=== PATIENT | female | born 1965 | race Caucasian/White ===

== ENCOUNTER 2017-01-06 10:39 | Emergency (ER) | payer MEDICARE, OTHER ==
[2017-01-06] MEDS ORDERED: SODIUM CHLORIDE 0.9% 1,000 ML IV ONE (11:27)
[2017-01-06] MEDS ORDERED: ASPIRIN 325 MG TAB PO STA (11:27)
--- NOTE | 2017-01-06 12:06 | ED ---
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 She states that intermittently throughout the day she will get what closely resembles a pickup resulting in a small amount of air being expelled from her mouth numerous times a day. She states that she will occasionally feel mildly short of breath with this and that after doing it for 2 weeks she also has mild chest discomfort. During interview she states that she has a markedly past medical history of anxiety. She also states is a family history of premature coronary artery disease. She is concerned that due to her smoking she may have developed "holes in my lungs" that could be causing this. There were no preceding symptoms or recent illness. - Related Data Home Medications Medication Instructions Recorded Confirmed Citalopram Hydrobromide 40 mg PO HS 09/06/14 01/06/17 [Citalopram HBr] Dextroamphetamine/Amphetamine 20 mg PO QAM 01/06/17 01/06/17 [Adderall Xr] Lurasidone HCl [Latuda] 20 mg PO HS 01/06/17 01/06/17 Multivitamins, Thera [Multivitamin 1 tab PO DAILY 01/06/17 01/06/17 (formulary)] Allergies Allergy/AdvReac Type Severity Reaction Status Date / Time No Known Allergies Allergy Verified 01/06/17 11:42 Review of Systems ROS Statement: Those systems with pertinent positive or pertinent negative responses have been documented in the HPI. ROS Other: All systems not noted in ROS Statement are negative. Constitutional: Denies: fever, chills Eyes: Denies: eye pain, eye discharge, vision change ENT: Denies: ear pain, throat pain Respiratory: Reports: dyspnea, other (respiratory tick with release of breath involuntarily). Denies: cough, wheezes, hemoptysis, stridor Cardiovascular: Reports: chest pain. Denies: palpitations Endocrine: Denies: fatigue, polydipsia, polyuria Gastrointestinal: Denies: abdominal pain, nausea, vomiting Genitourinary: Denies: urgency, dysuria Musculoskeletal: Denies: back pain, arthralgia, myalgia Skin: Denies: rash, lesions Neurological: Denies: headache, weakness Psychiatric: Denies: anxiety, depression Hematological/Lymphatic: Denies: easy bleeding, easy bruising Past Medical History Additional Past Medical History / Comment(s): migraines, back pains, ectopic , depression, anxiety History of Any Multi-Drug Resistant Organisms: None Reported Past Surgical History: No Surgical Hx Reported Additional Past Surgical History / Comment(s): Ectopic removal Past Psychological History: Anxiety, Bipolar, Depression Smoking Status: Current some day smoker Past Alcohol Use History: Occasional Past Drug Use History: None Reported General Exam Limitations: no limitations General appearance: alert, in no apparent distress Head exam: Present: atraumatic, normocephalic, normal inspection Eye exam: Present: normal appearance, PERRL, EOMI. Absent: scleral icterus, conjunctival injection, periorbital swelling ENT exam: Present: normal exam, mucous membranes moist Neck exam: Present: normal inspection. Absent: tenderness, meningismus, lymphadenopathy Respiratory exam: Present: normal lung sounds bilaterally. Absent: respiratory distress, wheezes, rales, rhonchi, stridor Cardiovascular Exam: Present: regular rate, normal rhythm, normal heart sounds. Absent: systolic murmur, diastolic murmur, rubs, gallop, clicks GI/Abdominal exam: Present: soft, normal bowel sounds. Absent: distended, tenderness, guarding, rebound, rigid Rectal exam: Present: deferred Extremities exam: Present: normal inspection, full ROM, normal capillary refill. Absent: tenderness, pedal edema, joint swelling, calf tenderness Back exam: Present: normal inspection Neurological exam: Present: alert, oriented X3, CN II-XII intact Psychiatric exam: Present: anxious. Absent: flat affect, manic, homicidal ideation, suicidal ideation Skin exam: Present: warm, dry, intact, normal color. Absent: rash Course Vital Signs 01/06/17 01/06/17 01/06/17 10:48 12:11 13:11 Temperature 98.1 F Pulse Rate 108 H 90 86 Respiratory 20 Rate Blood Pressure 125/74 121/74 137/73 O2 Sat by Pulse 99 Oximetry 01/06/17 13:21 Temperature 97.6 F Pulse Rate 82 Respiratory 17 Rate Blood Pressure 125/72 O2 Sat by Pulse 98 Oximetry Medical Decision Making - Medical Decision Making Labs revealed no significant abnormalities and the chest x-ray showed no acute process. The patient was reevaluated and stated that she was feeling fine right now although she continues to have the hiccup like episodes. She was informed of all results and through shared decision making it was determined that she would be discharged with instructions to follow up with her PCP but to return if her symptoms should worsen or persist. She acknowledged an understanding of this information and agreed with this plan of care. - Lab Data Result diagrams: 01/06/17 12:07 01/06/17 12:07 Lab Results 01/06/17 01/06/17 01/06/17 Range/Units 12:07 12:07 12:07 WBC 7.7 (3.8-10.6) k/uL RBC 5.08 (3.80-5.40) m/uL Hgb 14.2 (11.4-16.0) gm/dL Hct 43.2 (34.0-46.0) % MCV 85.0 (80.0-100.0) fL MCH 27.8 (25.0-35.0) pg MCHC 32.8 (31.0-37.0) g/dL RDW 13.0 (11.5-15.5) % Plt Count 346 (150-450) k/uL Neutrophils % 66 % Lymphocytes % 26 % Monocytes % 5 % Eosinophils % 2 % Basophils % 0 % Neutrophils # 5.1 (1.3-7.7) k/uL Lymphocytes # 2.0 (1.0-4.8) k/uL Monocytes # 0.4 (0-1.0) k/uL Eosinophils # 0.1 (0-0.7) k/uL Basophils # 0.0 (0-0.2) k/uL D-Dimer (<0.60) mg/L FEU Sodium 142 (137-145) mmol/L Potassium 4.8 (3.5-5.1) mmol/L Chloride 103 (98-107) mmol/L Carbon Dioxide 28 (22-30) mmol/L Anion Gap 11 mmol/L BUN 11 (7-17) mg/dL Creatinine 0.70 (0.52-1.04) mg/dL Est GFR (MDRD) Af Amer >60 (>60 ml/min/1.73 sqM) Est GFR (MDRD) Non-Af >60 (>60 ml/min/1.73 sqM) Glucose 77 (74-99) mg/dL Calcium 10.1 (8.4-10.2) mg/dL Troponin I (0.000-0.034) ng/mL NT-Pro-B Natriuret Pep 41 pg/mL 01/06/17 01/06/17 01/06/17 Range/Units 12:07 12:07 13:55 WBC (3.8-10.6) k/uL RBC (3.80-5.40) m/uL Hgb (11.4-16.0) gm/dL Hct (34.0-46.0) % MCV (80.0-100.0) fL MCH (25.0-35.0) pg MCHC (31.0-37.0) g/dL RDW (11.5-15.5) % Plt Count (150-450) k/uL Neutrophils % % Lymphocytes % % Monocytes % % Eosinophils % % Basophils % % Neutrophils # (1.3-7.7) k/uL Lymphocytes # (1.0-4.8) k/uL Monocytes # (0-1.0) k/uL Eosinophils # (0-0.7) k/uL Basophils # (0-0.2) k/uL D-Dimer 0.27 (<0.60) mg/L FEU Sodium (137-145) mmol/L Potassium (3.5-5.1) mmol/L Chloride (98-107) mmol/L Carbon Dioxide (22-30) mmol/L Anion Gap mmol/L BUN (7-17) mg/dL Creatinine (0.52-1.04) mg/dL Est GFR (MDRD) Af Amer (>60 ml/min/1.73 sqM) Est GFR (MDRD) Non-Af (>60 ml/min/1.73 sqM) Glucose (74-99) mg/dL Calcium (8.4-10.2) mg/dL Troponin I <0.012 <0.012 (0.000-0.034) ng/mL NT-Pro-B Natriuret Pep pg/mL 01/06/17 12:08 Number sinus rhythm with possible left atrial enlargement. Ventricular rate 96 , KS interval 128, QRS 92, QT/QTC 364/459. Disposition Clinical Impression: SOB (shortness of breath) Disposition: HOME SELF-CARE Condition: Stable Instructions: Dyspnea (ED), Hiccups (ED), Breathing Techniques (ED) Referrals: Mathieu Slade MD [Primary Care Provider] - 1-2 days Time of Disposition: 14:57
--- NOTE | 2017-01-06 12:24 | XR ---
EXAMINATION TYPE: XR chest 2V DATE OF EXAM: 01/06/2017 COMPARISON: Prior chest x-ray March 02, 2012 HISTORY: History of tobacco use presents with shortness of breath and chest pain. TECHNIQUE: Frontal and lateral views of the chest are obtained. FINDINGS: There is no focal air space opacity, pleural effusion, or pneumothorax seen. The cardiac silhouette size is within normal limits. The osseous structures are intact. IMPRESSION: No acute cardiopulmonary process.
[2017-01-06 12:38] LABS: Basophils % (A) 0 %; CH 27.8; CHCM 32.9; Eosinophils # (A) 0.1 k/uL (0-0.7); Eosinophils % (A) 2 %; HCT 43.2 % (34.0-46.0); HDW 2.35; HGB 14.2 gm/dL (11.4-16.0); Luc # (Auto) 0.13; Luc % (Auto) 2; Lymphocytes % (A) 26 %; MCH 27.8 pg (25.0-35.0); MCHC 32.8 g/dL (31.0-37.0); Mean Platelet Volume 6.4; Monocytes # (A) 0.4 k/uL (0-1.0); Monocytes % (A) 5 %; Neutrophils # (A) 5.1 k/uL (1.3-7.7); Neutrophils % (A) 66 %; RBC 5.08 m/uL (3.80-5.40); WBC 7.7 k/uL (3.8-10.6); WBC (Perox) 7.55
[2017-01-06 12:50] LABS: Anion Gap 11 mmol/L; Blood Urea Nitrogen 11 mg/dL (7-17); Calcium 10.1 mg/dL (8.4-10.2); Carbon Dioxide 28 mmol/L (22-30); Chloride 103 mmol/L (98-107); Glucose 77 mg/dL (74-99); Non-African American GFR(MDRD) >60 (>60 ml/min/1.73 sqM); Potassium 4.8 mmol/L (3.5-5.1); Sodium 142 mmol/L (137-145)
[2017-01-06 15:08] VITALS: BP 119/75; PULSE 93; RESP 16; TEMP 97.5
== END 2017-01-06 15:07 | disposition home or self-care (01) ==
LOC: EC 10:39
DX: R06.02 Shortness of breath (principal); R07.89 Other chest pain; F31.9 Bipolar disorder, unspecified; F41.9 Anxiety disorder, unspecified; F17.200 Nicotine dependence, unspecified, uncomplicated; Z79.899 Other long term (current) drug therapy
CPT/HCPCS: 36415; 71020; 80048; 83880; 84484; 85025; 85379; 93005; 96360; 99285

== ENCOUNTER 2017-05-22 23:05 | Emergency (ER) | payer MEDICARE, OTHER ==
[2017-05-22 23:13] VITALS: BP 119/75; PULSE 111; RESP 18; TEMP 98.2
[2017-05-23] MEDS ORDERED: LORazepam 1 MG TAB PO STA (00:39)
[2017-05-23] MEDS ORDERED: KETOROLAC 30 MG/ML 1 ML VIAL IVP STA (00:39)
[2017-05-23 00:43] LABS: Basophils % (A) 0 %; CH 29.3; CHCM 33.6; Eosinophils # (A) 0.3 k/uL (0-0.7); Eosinophils % (A) 3 %; HCT 46.6 % (34.0-46.0); HDW 2.36; HGB 14.5 gm/dL (11.4-16.0); Luc # (Auto) 0.12; Luc % (Auto) 1; Lymphocytes # (A) 2.5 k/uL (1.0-4.8); Lymphocytes % (A) 26 %; MCH 27.4 pg (25.0-35.0); MCHC 31.2 g/dL (31.0-37.0); MCV 87.7 fL (80.0-100.0); Mean Platelet Volume 7.3; Monocytes # (A) 0.6 k/uL (0-1.0); Monocytes % (A) 6 %; Neutrophils # (A) 6.3 k/uL (1.3-7.7); Neutrophils % (A) 64 %; RBC 5.32 m/uL (3.80-5.40); RDW 14.6 % (11.5-15.5); WBC 9.8 k/uL (3.8-10.6); WBC (Perox) 9.87
--- NOTE | 2017-05-23 00:44 | XR ---
EXAMINATION TYPE: XR chest 2V DATE OF EXAM: 05/23/2017 COMPARISON: 01/06/2017 HISTORY: Cough TECHNIQUE: Frontal and lateral views of the chest are obtained. FINDINGS: Heart and mediastinum are normal. Lungs are clear. Diaphragm is normal. Bony thorax is int act. IMPRESSION: Normal chest. No change.
[2017-05-23 00:52] LABS: ALT 33 U/L (9-52); AST 18 U/L (14-36); Alkaline Phosphatase 95 U/L (38-126); Anion Gap 11 mmol/L; Blood Urea Nitrogen 9 mg/dL (7-17); Calcium 9.6 mg/dL (8.4-10.2); Carbon Dioxide 23 mmol/L (22-30); Chloride 104 mmol/L (98-107); Glucose 92 mg/dL (74-99); Non-African American GFR(MDRD) >60 (>60 ml/min/1.73 sqM); Potassium 3.8 mmol/L (3.5-5.1); Sodium 138 mmol/L (137-145); Total Bilirubin 0.3 mg/dL (0.2-1.3); Total Protein 7.4 g/dL (6.3-8.2)
--- NOTE | 2017-05-23 01:18 | ED ---
General Adult HPI - General Chief complaint: Anxiety Stated complaint: Anxiety Time Seen by Provider: 05/22/17 23:44 Source: patient, RN notes reviewed Mode of arrival: ambulatory Limitations: no limitations - History of Present Illness Initial comments: This a 52-year-old female presents emergency Department chief complaint right- sided chest pain. Patient states started earlier today when she did state that she's been having some issues over the last few days. Patient states that she contributes to anxiety. Patient states the pain is worse with movement states that this is catching in her right anterior chest wall region. She denies any trauma no rashes no fevers or chills. She has had a cough but states symptoms are resolved and aspect. Patient has no cardiac history she states that she's had problems with this in the past and was told it was due to anxiety. Patient states she has pain with deep inspiration but no associated shortness of breath. Denies any nausea vomiting. Patient has not taken anything for the pain at this time. - Related Data Home Medications Medication Instructions Recorded Confirmed Citalopram Hydrobromide 40 mg PO HS 09/06/14 05/22/17 [Citalopram HBr] Dextroamphetamine/Amphetamine 20 mg PO QAM 01/06/17 05/22/17 [Adderall Xr] Lurasidone HCl [Latuda] 20 mg PO HS 01/06/17 05/22/17 Multivitamins, Thera [Multivitamin 1 tab PO DAILY 01/06/17 05/22/17 (formulary)] Previous Rx's Medication Instructions Recorded Ibuprofen [Motrin] 600 mg PO Q8HR PRN #30 tab 05/23/17 LORazepam [Ativan] 0.5 mg PO BID #10 tab 05/23/17 traMADol HCl [Ultram] 50 mg PO Q6H PRN #20 tab 05/23/17 Allergies Allergy/AdvReac Type Severity Reaction Status Date / Time No Known Allergies Allergy Verified 05/22/17 23:12 Review of Systems ROS Statement: Those systems with pertinent positive or pertinent negative responses have been documented in the HPI. ROS Other: All systems not noted in ROS Statement are negative. Past Medical History Additional Past Medical History / Comment(s): migraines, back pains, ectopic , depression, anxiety History of Any Multi-Drug Resistant Organisms: None Reported Past Surgical History: No Surgical Hx Reported Additional Past Surgical History / Comment(s): Ectopic removal Past Psychological History: Anxiety, Bipolar, Depression Smoking Status: Current every day smoker Past Alcohol Use History: Occasional Past Drug Use History: None Reported General Exam Limitations: no limitations General appearance: alert, in no apparent distress Head exam: Present: atraumatic, normocephalic, normal inspection Eye exam: Present: normal appearance, PERRL, EOMI. Absent: scleral icterus, conjunctival injection, periorbital swelling ENT exam: Present: normal exam, normal oropharynx, mucous membranes moist, TM's normal bilaterally Neck exam: Present: normal inspection, full ROM. Absent: tenderness, meningismus, lymphadenopathy Respiratory exam: Present: normal lung sounds bilaterally, chest wall tenderness (Moderate right anterior). Absent: respiratory distress, wheezes, rales, rhonchi, stridor Cardiovascular Exam: Present: normal rhythm, tachycardia, normal heart sounds. Absent: systolic murmur, diastolic murmur, rubs, gallop, clicks GI/Abdominal exam: Present: soft, normal bowel sounds. Absent: distended, tenderness, guarding, rebound, rigid Neurological exam: Present: alert, oriented X3, CN II-XII intact Psychiatric exam: Present: anxious Skin exam: Present: warm, dry, intact, normal color. Absent: rash Course Vital Signs 05/22/17 23:10 Temperature 98.2 F Pulse Rate 111 H Respiratory 18 Rate Blood Pressure 119/75 O2 Sat by Pulse 98 Oximetry EKG Findings - EKG Comments: EKG Findings:: EKG performed at 1:32 sinus rhythm with short NM interval, rate of 79 NM interval 102 QRS 94 QT/QTC 400/458 Medical Decision Making - Medical Decision Making 52-year-old female presented to the ER with cc of chest wall pain. Patient's pain is reproducible and patient has been very anxious. Patient is feeling improved after Toradol, Ativan here. Patient's lab results, x-ray and KUB were reviewed with the patient is no acute abnormality. Patient's pain seems muscular skeletal nature in addition to her anxiety. Patient will be advised to continue anti-inflammatories and follow-up with her primary care physician. Return parameters were discussed. - Lab Data Result diagrams: 05/23/17 00:35 05/23/17 00:35 Lab Results 05/23/17 05/23/17 05/23/17 Range/Units 00:35 00:35 00:35 WBC 9.8 (3.8-10.6) k/uL RBC 5.32 (3.80-5.40) m/uL Hgb 14.5 (11.4-16.0) gm/dL Hct 46.6 H (34.0-46.0) % MCV 87.7 (80.0-100.0) fL MCH 27.4 (25.0-35.0) pg MCHC 31.2 (31.0-37.0) g/dL RDW 14.6 (11.5-15.5) % Plt Count 340 (150-450) k/uL Neutrophils % 64 % Lymphocytes % 26 % Monocytes % 6 % Eosinophils % 3 % Basophils % 0 % Neutrophils # 6.3 (1.3-7.7) k/uL Lymphocytes # 2.5 (1.0-4.8) k/uL Monocytes # 0.6 (0-1.0) k/uL Eosinophils # 0.3 (0-0.7) k/uL Basophils # 0.0 (0-0.2) k/uL D-Dimer 0.34 (<0.60) mg/L FEU Sodium 138 (137-145) mmol/L Potassium 3.8 (3.5-5.1) mmol/L Chloride 104 (98-107) mmol/L Carbon Dioxide 23 (22-30) mmol/L Anion Gap 11 mmol/L BUN 9 (7-17) mg/dL Creatinine 0.60 (0.52-1.04) mg/dL Est GFR (MDRD) Af Amer >60 (>60 ml/min/1.73 sqM) Est GFR (MDRD) Non-Af >60 (>60 ml/min/1.73 sqM) Glucose 92 (74-99) mg/dL Calcium 9.6 (8.4-10.2) mg/dL Magnesium 2.0 (1.6-2.3) mg/dL Total Bilirubin 0.3 (0.2-1.3) mg/dL AST 18 (14-36) U/L ALT 33 (9-52) U/L Alkaline Phosphatase 95 (38-126) U/L Troponin I (0.000-0.034) ng/mL Total Protein 7.4 (6.3-8.2) g/dL Albumin 4.2 (3.5-5.0) g/dL 05/23/17 Range/Units 00:35 WBC (3.8-10.6) k/uL RBC (3.80-5.40) m/uL Hgb (11.4-16.0) gm/dL Hct (34.0-46.0) % MCV (80.0-100.0) fL MCH (25.0-35.0) pg MCHC (31.0-37.0) g/dL RDW (11.5-15.5) % Plt Count (150-450) k/uL Neutrophils % % Lymphocytes % % Monocytes % % Eosinophils % % Basophils % % Neutrophils # (1.3-7.7) k/uL Lymphocytes # (1.0-4.8) k/uL Monocytes # (0-1.0) k/uL Eosinophils # (0-0.7) k/uL Basophils # (0-0.2) k/uL D-Dimer (<0.60) mg/L FEU Sodium (137-145) mmol/L Potassium (3.5-5.1) mmol/L Chloride (98-107) mmol/L Carbon Dioxide (22-30) mmol/L Anion Gap mmol/L BUN (7-17) mg/dL Creatinine (0.52-1.04) mg/dL Est GFR (MDRD) Af Amer (>60 ml/min/1.73 sqM) Est GFR (MDRD) Non-Af (>60 ml/min/1.73 sqM) Glucose (74-99) mg/dL Calcium (8.4-10.2) mg/dL Magnesium (1.6-2.3) mg/dL Total Bilirubin (0.2-1.3) mg/dL AST (14-36) U/L ALT (9-52) U/L Alkaline Phosphatase (38-126) U/L Troponin I <0.012 (0.000-0.034) ng/mL Total Protein (6.3-8.2) g/dL Albumin (3.5-5.0) g/dL Disposition Clinical Impression: Chest wall pain, Acute anxiety Disposition: HOME SELF-CARE Condition: Stable Instructions: Generalized Anxiety Disorder (ED), Chest Wall Pain (ED) Additional Instructions: Please return to the Emergency Department if symptoms worsen or any other concerns. Prescriptions: Ibuprofen [Motrin] 600 mg PO Q8HR PRN #30 tab PRN Reason: Pain LORazepam [Ativan] 0.5 mg PO BID #10 tab traMADol HCl [Ultram] 50 mg PO Q6H PRN #20 tab PRN Reason: Pain Referrals: Mathieu Slade MD [Primary Care Provider] - 1-2 days Time of Disposition: 01:45
== END 2017-05-23 02:13 | disposition home or self-care (01) ==
LOC: EC 23:05
DX: R07.89 Other chest pain (principal); F41.9 Anxiety disorder, unspecified; R05 Cough; F31.9 Bipolar disorder, unspecified; F17.200 Nicotine dependence, unspecified, uncomplicated; Z79.899 Other long term (current) drug therapy
CPT/HCPCS: 99284 ×2; 96374 ×2; 36415; 93005; 85379; 80053; 83735; 84484; 85025; 71020; J1885

== ENCOUNTER → 2017-12-28 | Outpatient (CLI) | payer MEDICARE, OTHER ==
--- NOTE | 2017-12-28 08:44 | US ---
EXAMINATION TYPE: US pelvic complete DATE OF EXAM: 12/28/2017 COMPARISON: 12/05/2014 CLINICAL HISTORY: 52 year-old female pelvic and perineal pain R10.2 Pelvic And Perineal pain. TECHNIQUE: Transabdominal (TA). Date of LMP: 12/14/2017 FINDINGS: EXAM MEASUREMENTS: Uterus: 5.6 x 3.3 x 4.6 cm Endometrial Stripe: 0.3 cm Right Ovary: 2.1 x 2.3 x 1.5 cm Left Ovary: 2.1 x 1.1 x 1.3 cm 1. Uterus: Anteverted. Cervical nabothian cyst measures 0.8 x 0.6 cm 2. Endometrium: Only a small portion of the fundal endometrium is seen measuring normal. 3. Right Ovary: wnl 4. Left Ovary: wnl 5. Bilateral Adnexa: wnl 6. Posterior cul-de-sac: no free fluid IMPRESSION: Limited visualization of the endometrial stripe. A small portion of the fundal endometrium measures n ormal at 3 mm. 8 mm cervical nabothian cyst. No specific abnormality seen on transabdominal scanning.
== END | disposition home or self-care (01) ==
LOC: RADUSWWP 07:45
PROVIDERS: ATTEND Family Medicine
DX: N88.8 Other specified noninflammatory disorders of cervix uteri (principal)
CPT/HCPCS: 76856

== ENCOUNTER 2018-10-02 10:23 | Emergency (ER) | payer MEDICARE, OTHER ==
[2018-10-02 10:34] VITALS: RESP 18
[2018-10-02] MEDS ORDERED: KETOROLAC 30 MG/ML 1 ML VIAL IVP STA (11:23)
--- NOTE | 2018-10-02 11:23 | ED ---
Animal Bite HPI - General Chief Complaint: Animal Bite Stated Complaint: Infection in leg Time Seen by Provider: 10/02/18 11:00 Source: patient, RN notes reviewed Mode of arrival: ambulatory Limitations: no limitations - History of Present Illness Initial Comments: This is a 53-year-old female who states she was bit by her cat 4 days ago. She sustained a bite to the right lower extremity. She was seen by a physician and placed on clindamycin and she states she is having some difficulty with. She does states she will try taking more food with her. No fevers chills sweats she is has some increased pain. Cat is immunized. No other injuries reported no other complaints. She does have ALLERGIES to Zithromax. MD Complaint: animal bite - Related Data Home Medications Medication Instructions Recorded Confirmed Citalopram Hydrobromide 40 mg PO HS 09/06/14 10/02/18 [Citalopram HBr] Dextroamphetamine/Amphetamine 20 mg PO QAM 01/06/17 10/02/18 [Adderall Xr] Lurasidone [Latuda] 20 mg PO HS 01/06/17 10/02/18 Clindamycin HCl 300 mg PO Q8H 10/02/18 10/02/18 Mesalamine [Rowasa enema] 4 gm RECTAL HS 10/02/18 10/02/18 Previous Rx's Medication Instructions Recorded Amoxic-Pot Clav 875-125Mg 1 tab PO Q12HR #20 tablet 10/02/18 [Augmentin 875-125] Ibuprofen [Motrin] 600 mg PO Q6HR PRN #20 tab 10/02/18 Allergies Allergy/AdvReac Type Severity Reaction Status Date / Time azithromycin [From Zithromax] Allergy Unknown Verified 10/02/18 11:06 Review of Systems ROS Statement: Those systems with pertinent positive or pertinent negative responses have been documented in the HPI. ROS Other: All systems not noted in ROS Statement are negative. Past Medical History Additional Past Medical History / Comment(s): migraines, back pains, ectopic , depression, anxiety History of Any Multi-Drug Resistant Organisms: None Reported Past Surgical History: No Surgical Hx Reported Additional Past Surgical History / Comment(s): Ectopic removal Past Psychological History: Anxiety, Bipolar, Depression Smoking Status: Current every day smoker Past Alcohol Use History: Occasional Past Drug Use History: None Reported General Exam - General Exam Comments Initial Comments: This is a well-developed well-nourished awake alert oriented 3 female Limitations: no limitations General appearance: alert, in no apparent distress Head exam: Present: atraumatic Eye exam: Present: normal appearance Neck exam: Present: normal inspection, full ROM Extremities exam: Present: full ROM, tenderness, normal capillary refill, other (The right anterior lateral inferior scott demonstrates some ecchymosis localized erythema slight amount of drainage no lymphangitis. No evidence of any abscess formation at this time. Proximal to this no evidence of any lymphadenopathy. There are 2 distinct puncture wounds entire area is approximately 5 x 5 cm.) Course Vital Signs 10/02/18 10:32 Temperature 98.7 F Pulse Rate 103 H Respiratory 18 Rate Blood Pressure 126/80 O2 Sat by Pulse 100 Oximetry Medical Decision Making - Medical Decision Making Patient is feeling improved this time patient will be discharged due to the difficulty with the current antibiotic she was switched to Augmentin. Patient does demonstrate evidence of the Bite with puncture wounds as well as crush injury. We did have a long discussion regarding both. - Lab Data Result diagrams: 10/02/18 11:30 Lab Results 10/02/18 Range/Units 11:30 WBC 6.5 (3.8-10.6) k/uL RBC 5.14 (3.80-5.40) m/uL Hgb 13.8 (11.4-16.0) gm/dL Hct 44.5 (34.0-46.0) % MCV 86.6 (80.0-100.0) fL MCH 26.9 (25.0-35.0) pg MCHC 31.1 (31.0-37.0) g/dL RDW 13.6 (11.5-15.5) % Plt Count 367 (150-450) k/uL Neutrophils % 62 % Lymphocytes % 28 % Monocytes % 6 % Eosinophils % 3 % Basophils % 0 % Neutrophils # 4.0 (1.3-7.7) k/uL Lymphocytes # 1.8 (1.0-4.8) k/uL Monocytes # 0.4 (0-1.0) k/uL Eosinophils # 0.2 (0-0.7) k/uL Basophils # 0.0 (0-0.2) k/uL - Radiology Data Radiology results: report reviewed, image reviewed (I did review the imaging and report no evidence of foreign body) Disposition Clinical Impression: Cat bite, Leg injury Disposition: HOME SELF-CARE Condition: Good Instructions (If sedation given, give patient instructions): Animal Bite (ED) Additional Instructions: Stop the clindamycin and start Augmentin Prescriptions: Amoxic-Pot Clav 875-125Mg [Augmentin 875-125] 1 tab PO Q12HR #20 tablet Ibuprofen [Motrin] 600 mg PO Q6HR PRN #20 tab PRN Reason: Pain Is patient prescribed a controlled substance at d/c from ED?: No Referrals: Mathieu Slade MD [Primary Care Provider] - 1-2 days
[2018-10-02 11:55] LABS: Basophils % (A) 0 %; Eosinophils # (A) 0.2 k/uL (0-0.7); Eosinophils % (A) 3 %; HCT 44.5 % (34.0-46.0); HGB 13.8 gm/dL (11.4-16.0); Lymphocytes # (A) 1.8 k/uL (1.0-4.8); Lymphocytes % (A) 28 %; MCH 26.9 pg (25.0-35.0); MCHC 31.1 g/dL (31.0-37.0); MCV 86.6 fL (80.0-100.0); Mean Platelet Volume 6.1; Monocytes # (A) 0.4 k/uL (0-1.0); Monocytes % (A) 6 %; Neutrophils % (A) 62 %; Platelet Count 367 k/uL (150-450); RBC 5.14 m/uL (3.80-5.40); RDW 13.6 % (11.5-15.5); WBC 6.5 k/uL (3.8-10.6)
--- NOTE | 2018-10-02 12:14 | XR ---
EXAMINATION TYPE: XR tibia fibula RT DATE OF EXAM: 10/02/2018 CLINICAL HISTORY: Cat bite 5 days prior, pain TECHNIQUE: Two views of the right leg are obtained. COMPARISON: None. FINDINGS: No acute fracture or dislocation. Minimal degenerative type changes are seen of the right k nee. Minimal soft tissue swelling is seen of the lateral aspect of the level of the mid fibula. No ra diopaque foreign bodies or subcutaneous air. IMPRESSION: 1. No acute fracture or dislocation. 2. Minimal soft tissue swelling along lateral aspect of the calf. No radiopaque foreign bodies or sub cutaneous air.
[2018-10-02 13:59] VITALS: BP 128/60; PULSE 60; TEMP 98.8
== END 2018-10-02 13:50 | disposition home or self-care (01) ==
LOC: EC 10:23
DX: S81.831A Puncture wound without foreign body, right lower leg, initial encounter (principal); F31.9 Bipolar disorder, unspecified; F41.9 Anxiety disorder, unspecified; F17.200 Nicotine dependence, unspecified, uncomplicated; Z79.899 Other long term (current) drug therapy; Z88.1 Allergy status to other antibiotic agents; W55.01XA Bitten by cat, initial encounter
CPT/HCPCS: 36415; 85025; 87040; 73590; 99283; 96365; 96375; J0696; J1885